=== PATIENT | female | born 1990 | race Native Hawaiian/Other Pacific Islander ===

== ENCOUNTER 2016-07-16 06:13 | Emergency (ER) | payer OTHER ==
[2016-07-16 06:23] VITALS: O2SAT 100
[2016-07-16] MEDS ORDERED: Sodium Chloride 0.9% 1,000 ML IV STA (06:25)
--- NOTE | 2016-07-16 06:44 | ED PDOC ---
HPI:Nausea, Vomiting, Diarrhea Time Seen by Provider: 07/16/16 06:17 Chief Complaint (Nursing): Abdominal Pain Chief Complaint (Provider): Vomiting/Diarrhea History Per: Patient History/Exam Limitations: no limitations Onset/Duration Of Symptoms: Hrs (x4) Current Symptoms Are (Timing): Still Present Context: Food (Vietnamese Seafood Soup) Associated Symptoms: Vomiting (x5, non-bilious/non-bloody), Diarrhea (x3, loose/ watery/non-bloody). denies: Fever, Chest Pain, Other (no cough, shortness of breath) Additional Complaint(s): Antwon Ramirez is a 26 year old [place] female, with a past medical history inclusive of "indegestion", who presents to the ED on 07/16/16 for evaluation s/p 5 episodes of non-bilious/non-bloody vomiting and 3 episodes of loose/watery/non- bloody diarrhea that she experienced upon waking 3 hours prior to arrival. Associated abdominal discomfort also reported, coinciding with episodes of vomiting, though she otherwise denies persistent abdominal pain. Further denies fever, cough, shortness of breath, chest pain or recent travel, stating that she believes she may have gotten sick from some [place] seafood soup that she had eaten last night. PMD: none provided Past Medical History Reviewed: Historical Data, Nursing Documentation, Vital Signs Vital Signs: Last Vital Signs Temp 99.2 F 07/16/16 06:22 Pulse 112 H 07/16/16 06:22 Resp 18 07/16/16 06:22 BP 108/83 07/16/16 06:22 Pulse Ox 100 07/16/16 06:22 - Medical History Other PMH: "indegestion" - Surgical History Surgical History: No Surg Hx - Family History Family History: States: No Known Family Hx - Home Medications Home Medications: Ambulatory Orders Medication Instructions Recorded Famotidine [Pepcid] 20 mg PO Q12 #20 tab 07/16/16 Ondansetron [Zofran] 4 mg PO Q8H #10 tab 07/16/16 - Allergies Allergies/Adverse Reactions: Allergies Allergy/AdvReac Type Severity Reaction Status Date / Time No Known Allergies Allergy Verified 07/16/16 06:22 Review of Systems ROS Statement: Except As Marked, All Systems Reviewed And Found Negative Constitutional: Negative for: Fever Cardiovascular: Negative for: Chest Pain Respiratory: Negative for: Cough, Shortness of Breath Gastrointestinal: Positive for: Vomiting (x5, non-bilious/non-bloody), Abdominal Pain (only with episodes of vomiting), Diarrhea (x3 episodes, loose/ watery/non-bloody) Physical Exam - Reviewed Nursing Documentation Reviewed: Yes Vital Signs Reviewed: Yes - Physical Exam Appears: Positive for: Non-toxic, Uncomfortable Head Exam: Positive for: ATRAUMATIC, NORMOCEPHALIC Skin: Positive for: Normal Color, Warm, Dry Eye Exam: Positive for: Normal appearance, PERRL ENT: Positive for: Other (tacky mucous membranes) Cardiovascular/Chest: Positive for: Regular Rate, Rhythm. Negative for: Murmur Respiratory: Positive for: Normal Breath Sounds. Negative for: Respiratory Distress Gastrointestinal/Abdominal: Positive for: Normal Exam, Soft. Negative for: Tenderness Back: Positive for: Normal Inspection Neurologic/Psych: Positive for: Alert, Oriented - Laboratory Results Result Diagrams: 07/16/16 06:41 07/16/16 06:41 - ECG O2 Sat by Pulse Oximetry: 100 (RA) Pulse Ox Interpretation: Normal Medical Decision Making Medical Decision Makin:17 Initial Impression: 26 year old female with vomiting and diarrhea in the setting of prior history of "indigestion" Initial Plan: * Labs * Lipase * Udip * Urinalysis * IV NS 1000ml at 1000mls/hr * Pepcid 20mg IV * Zofran 4mg IV * Bentyl 20mg PO * Reevaluation 07:00 Patient will be endorsed over to David Goetz MD, pending ED workup, reevaluation and final disposition. Condition fair. Scribe Attestation: Documented by Kerry Harmon, acting as a scribe for Jesus Ruelas MD. Provider Scribe Attestation: All medical record entries made by the Scribe were at my direction and personally dictated by me. I have reviewed the chart and agree that the record accurately reflects my personal performance of the history, physical exam, medical decision making, and the department course for this patient. I have also personally directed, reviewed, and agree with the discharge instructions and disposition. Disposition - Clinical Impression Clinical Impression: Gastroenteritis - Patient ED Disposition Is Patient to be Admitted: Transfer of Care - Disposition Referrals: [facility] [Outside] Disposition: Transfer of Care Disposition Time: 07:00 Condition: IMPROVED Prescriptions: Famotidine [Pepcid] 20 mg PO Q12 #20 tab Ondansetron [Zofran] 4 mg PO Q8H #10 tab Instructions: Gastroenteritis (ED)
[2016-07-16 06:54] LABS: BASO % 0.3 % (0.0-2.0); EOS % 0.1 % (0.0-4.0); HEMATOCRIT 40.2 % (34.0-47.0); LYMPH # 0.4 K/uL (1.0-4.3); LYMPH % 2.7 % (20.0-40.0); MEAN CELL VOLUME 95.4 fl (81.0-99.0); MEAN CORPUSCULAR HEMOGLOBIN 31.5 pg (27.0-31.0); MEAN PLATELET VOLUME 7.3 fl (7.2-11.7); MONO # 0.6 K/uL (0.0-0.8); MONO % 4.7 % (0.0-10.0); NEUT # 12.2 K/uL (1.8-7.0); NEUT % 92.2 % (50.0-75.0); PLATELET COUNT 222 K/uL (130-400); RED CELL DISTRIBUTION WIDTH 12.6 % (11.5-14.5); WHITE BLOOD COUNT 13.3 K/uL (4.8-10.8)
[2016-07-16 07:05] LABS: ALB/GLOB RATIO 1.4 (1.0-2.1); ALKALINE PHOSPHATASE 80 U/L (38-126); ALT/SGPT 28 U/L (9-52); AST/SGOT 32 U/L (14-36); BILIRUBIN,TOTAL 0.8 mg/dl (0.2-1.3); BLOOD UREA NITROGEN 16 mg/dl (7-17); CALCIUM 9.1 mg/dL (8.4-10.2); CARBON DIOXIDE 24 mmol/L (22-30); CHLORIDE 104 mmol/L (98-107); GFR AFRICAN-AMERICAN > 60; GLUCOSE,RANDOM 96 mg/dL (65-105); LIPASE 69 U/L (23-300); POTASSIUM 3.9 MMOL/L (3.6-5.0); SODIUM 144 mmol/l (132-148); TOTAL PROTEIN 7.8 G/DL (6.3-8.2)
[2016-07-16 07:14] LABS: RBC URINE 2 /hpf (0-3); URINE BILIRUBIN NEGATIVE (NEGATIVE); URINE BLOOD NEGATIVE (NEGATIVE); URINE COLOR YELLOW (YELLOW); URINE GLUCOSE (UA) NEG (Normal); URINE KETONE 80 mg/dL (NEGATIVE); URINE LEUKOCYTE ESTERASE TRACE Leu/uL (Negative); URINE PROTEIN 30 mg/dL (NEGATIVE); URINE UROBILINOGEN 0.2-1.0 mg/dL (0.2-1.0); WBC URINE 4 /hpf (0-5)
[2016-07-16 07:55] VITALS: TEMP 98
--- NOTE | 2016-07-16 10:13 | ED PDOC ---
- Laboratory Results Result Diagrams: 07/16/16 06:41 07/16/16 06:41 - ECG O2 Sat by Pulse Oximetry: 100 - Progress Re-evaluation Time: 10:11 Condition: Improved Disposition - Clinical Impression Clinical Impression: Gastroenteritis - POA Present On Arrival: None - Disposition Referrals: [facility] [Outside] Disposition: Routine/Home Disposition Time: 10:12 Condition: FAIR Prescriptions: Famotidine [Pepcid] 20 mg PO Q12 #20 tab Ondansetron [Zofran] 4 mg PO Q8H #10 tab Instructions: Gastroenteritis (ED)
[2016-07-16 10:29] LABS: NEUTROPHIL 93 % (42-75); TOTAL CELLS COUNTED 100
[2016-07-16 10:47] VITALS: BP 122/74; PULSE 75; RESP 14
== END 2016-07-16 10:45 | disposition home or self-care (01) ==
LOC: H.ER 06:13
DX: K52.9 Noninfective gastroenteritis and colitis, unspecified (principal); R11.2 Nausea with vomiting, unspecified; R19.7 Diarrhea, unspecified; R10.9 Unspecified abdominal pain